=== PATIENT | male | born 1940 | race Caucasian/White ===

== ENCOUNTER 2017-11-03 14:52 | Outpatient (CLI) | payer MEDICARE ==
--- NOTE | 2017-11-03 21:39 | XRAY Report ---
DATE OF SERVICE: 11/03/2017 TWO VIEW CHEST: 11/03/2017 CLINICAL INDICATION: Cough. Frontal and lateral views of the chest demonstrate a normal cardiac silhouette. The lungs are hyperinflated, compatible with COPD. No focal consolidation, effusion, or pneumothorax is present. IMPRESSION: COPD, but no evidence of acute cardiopulmonary disease. TD: 11/03/2017 22:38
== END 2017-11-03 14:53 | disposition home or self-care (01) ==
LOC: DI 14:52
PROVIDERS: ATTEND Nurse Practitioner Family
DX: R05 Cough (principal); J44.9 Chronic obstructive pulmonary disease, unspecified
CPT/HCPCS: 71046

== ENCOUNTER 2018-09-06 16:47 | Outpatient (CLI) | payer MEDICARE ==
--- NOTE | 2018-09-07 10:18 | XRAY Report ---
Reason: NEUROGENIC CLAUDICATION Procedure Date: 09/06/2018 Accession Number: [id number] / [id number] Procedure: XR - Lumbar Spine 2 View CPT Code: FULL RESULT: EXAM: LUMBOSACRAL SPINE RADIOGRAPHY EXAM DATE: 09/06/2018 05:01 PM. CLINICAL HISTORY: Neurogenic claudication. COMPARISONS: None. TECHNIQUE: 3 views. FINDINGS: Alignment: No scoliosis. Minimal anterolisthesis at L4-L5. Bones: Five ylo-ebq-vbjipyi lumbar vertebral bodies are present. No definite fractures or acute bone lesions. Circular sclerotic focus within the inferior L3 vertebral body likely represents a Schmorl's node. Disks: Mild to moderate disk space narrowing at L4-L5, L5-S1 and less so at L3-L4. Mild multilevel vertebral body spurring. Facets: Degenerative facet disease predominates at L5-S1. Sacroiliac Joints: Unremarkable. Soft Tissues: Substantial aortic/arterial calcifications.. The visualized bowel gas pattern is normal. IMPRESSION: 1. No definite acute abnormality. 2. Degenerative disk and facet disease, as above. RADIA
== END 2018-09-06 16:48 | disposition home or self-care (01) ==
LOC: DI 16:47
PROVIDERS: ATTEND Registered Nurse
DX: M51.36 Other intervertebral disc degeneration, lumbar region (principal); I73.9 Peripheral vascular disease, unspecified; G96.8 Other specified disorders of central nervous system
CPT/HCPCS: 72100

== ENCOUNTER 2018-10-08 08:46 | Outpatient (CLI) | payer MEDICARE ==
--- NOTE | 2018-10-08 16:07 | MRI Report ---
Reason: OTHER SPECIFIED DISORDERS OF CENTRAL NERVOUS SYST Procedure Date: 10/08/2018 Accession Number: [id number] / [id number] Procedure: MRI - Lumbar Spine W/O CPT Code: FULL RESULT: EXAM: MRI LUMBAR SPINE WITHOUT CONTRAST EXAM DATE: 10/08/2018 08:55 AM. CLINICAL HISTORY: Other specified disorders of central nervous system. Back pain. COMPARISON: Lumbar spine 2 views 09/06/2018 4:52 PM. TECHNIQUE: Multiplanar, multisequence T1-weighted and fluid-sensitive sequences of the lumbar spine from T12 to S1 without contrast. Other: None. FINDINGS: Spinal Canal: The conus terminates at T12-L1. The conus medullaris and cauda equina are unremarkable. Alignment: No scoliosis or spondylolisthesis. Bone Marrow: Five ozp-dhr-uzjzdxl lumbar vertebral bodies are assumed. No gross fractures or bone lesions. No bone marrow replacement. Disk Levels/Facets: T12-L1: Unremarkable. L1-L2: Unremarkable. L2-L3: Broad-based disk bulge, prominent facets. Mild to moderate central stenosis. Mild bilateral foraminal stenosis. L3-L4: Combination of short pedicles, hypertrophic facets and disk bulge creates severe central stenosis. No CSF surrounds the nerve roots at this level. Series 601 image 18. Moderate bilateral foraminal stenosis also seen. L4-L5: Disk dehydration, marked facet and ligament flavum hypertrophic change and short pedicles create severe central stenosis. Series 601 image 11. Mild bilateral foraminal stenosis. L5-S1: Prominent facets. Prominent ligament flavum. Mild broad-based bulge. Mild central stenosis. No foraminal stenosis. Musculature: Moderate fatty atrophy of the multifidus muscle also noted. Other: Upper kidneys show multiple areas of high signal on T2, presumed to be cyst. IMPRESSION: 1. Spinal cord terminates at T12-L1 which is normal. 2. L2-L3 shows a broad-based bulge and prominent facets. Mild to moderate central stenosis. Mild bilateral foraminal stenosis also noted. 3. L3-L4 shows short pedicles, hypertrophic facets and disk bulge creating severe central stenosis. Moderate bilateral foraminal stenosis. 4. L4-L5 shows marked facet and ligament flavum hypertrophic change with short pedicles creating severe central stenosis. Mild bilateral foraminal stenosis also seen. 5. L5-S1 shows prominent facets, mild bulge, mild central stenosis and no foraminal narrowing. Comment: The following findings are so common in adults without low back pain that while we report their presence, they must be interpreted with caution and in the context of the clinical situation. (Reference Yeni et al, Spine 2001) Prevalence of findings in patients without low back pain: Disk degeneration (any evidence): 92% Disk desiccation/T2 signal loss: 83% Disk height loss: 56% Disk bulge: 64% Disk protrusion: 32% Annular tear/high intensity zone: 38% RADIA
== END 2018-10-08 08:47 | disposition home or self-care (01) ==
LOC: DI 08:46
PROVIDERS: ATTEND Registered Nurse
DX: M47.9 Spondylosis, unspecified (principal); M51.36 Other intervertebral disc degeneration, lumbar region; M48.061 Spinal stenosis, lumbar region without neurogenic claudication
CPT/HCPCS: 72148

== ENCOUNTER 2019-02-27 12:54 | Outpatient (CLI) | payer MEDICARE ==
--- NOTE | 2019-02-28 00:50 | Ultrasound Report ---
Reason: ATHEROSCLEROSIS OR CORONARY ARTER WO ANGINA PECTOR Procedure Date: 02/27/2019 Accession Number: [id number] / [id number] Procedure: US - Carotid Doppler Complete CPT Code: FULL RESULT: EXAM: BILATERAL CAROTID AND VERTEBRAL ARTERY DUPLEX DOPPLER ULTRASOUND: EXAM DATE: 02/27/2019 01:41 PM CLINICAL HISTORY: Atherosclerosis or coronary artery without angina pectoris. COMPARISON: None. TECHNIQUE: Grayscale imaging, color Doppler, and duplex spectral Doppler were used to evaluate the carotid and vertebral arteries bilaterally. Static images were obtained. FINDINGS: Large amount of atheromatous plaques are noted in the left carotid bulb and extending into the left internal carotid artery. The left internal carotid artery is occluded. Large amount of atheromatous calcified and noncalcified plaques are present in the right carotid bulb and extending into the internal carotid artery. Markedly elevated velocities are noted in the proximal and mid right internal carotid artery with evidence of spectral broadening. The waveforms in the distal right internal carotid artery are dampened. While increased velocities are expected given the contralateral occlusion, the color and grayscale and spectral waveform analysis suggests a stenosis of greater than 70% to 99%. Normal antegrade flow is present in bilateral vertebral arteries. VELOCITIES (cm/sec): Right CCA mid: PSV 53 cm/sec CCA dist: PSV 62 cm/sec ICA prox: PSV 370 cm/sec, EDV 147 cm/sec ICA mid: PSV 390 cm/sec, EDV 143 cm/sec ICA dist: PSV 128 cm/sec, EDV 59 cm/sec ECA: PSV 89 cm/sec Vert: PSV 43 cm/sec ICA/CCA: 6.3 Left CCA mid: PSV 35 cm/sec CCA dist: PSV 200 cm/sec ICA prox: Occluded ICA mid: Occluded ICA dist: Occluded ECA: PSV 65 cm/sec Vert: PSV 42 cm/sec ICA/CCA: N/A ICA diameter stenosis: Right: 70-99% by velocity and greater than 70% by NASCET criteria. Left: Occluded by velocity and occluded by NASCET criteria. IMPRESSION: 1. Marked bilateral carotid artery plaquing. 2. Markedly elevated velocities with spectral broadening with associated color and grayscale imaging concerning for a stenosis of 70-99% at the right internal carotid artery. 3. Occluded left internal carotid artery. 4. Normal antegrade flow is present in bilateral vertebral arteries. General Recommendations: Stenosis =50% ICA - Follow-up ultrasound 6-12 months Stenosis <50% ICA - High Risk Patient with plaque - Follow-up ultrasound 1-2 years Normal Study but High Risk Patient - Follow-up ultrasound 3-5 years Management recommendations and diagnostic criteria are based on current IAC endorsed standards in Carotid Artery Stenosis: Grayscale and Doppler Ultrasound Diagnosis. Validated velocity measurements with angiographic measurements and velocity criteria are extrapolated from diameter data as defined by the Society of Radiologists in Ultrasound Consensus Conference Radiology 2003; 229;340-346. RADIA
== END 2019-02-27 12:55 | disposition home or self-care (01) ==
LOC: DI 12:54
PROVIDERS: ATTEND Registered Nurse
DX: I65.22 Occlusion and stenosis of left carotid artery (principal); I65.21 Occlusion and stenosis of right carotid artery; I25.10 Atherosclerotic heart disease of native coronary artery without angina pectoris
CPT/HCPCS: 93880

== ENCOUNTER 2019-08-03 11:13 | Outpatient (CLI) | payer MEDICARE ==
--- NOTE | 2019-08-04 09:09 | Ultrasound Report ---
Reason: DIABETES, PAD Procedure Date: 08/03/2019 Accession Number: [id number] / [id number] Procedure: US - Duplex Lwr Ext Arterial Bilat CPT Code: FULL RESULT: EXAM: BILATERAL LOWER EXTREMITY ARTERIAL DOPPLER ULTRASOUND EXAM DATE: 08/03/2019 12:32 PM. CLINICAL HISTORY: Diabetes, peripheral arterial disease. COMPARISON: None. TECHNIQUE: Real-time sonographic vascular imaging was performed by the meter and service line inspector, utilizing color-flow, Doppler flow, and spectral analysis. Multiple sales service representative static images were saved for review. FINDINGS: RIGHT LOWER EXTREMITY: DECK AND HULL ASSEMBLER: PSV 90 cm/sec, biphasic waveform. PSFA: Occluded. MSFA: Occluded. DSFA: PSV 10 cm/sec, biphasic waveform. PFA: PSV 58 cm/sec, biphasic waveform. POP: PSV 16 cm/sec, monophasic waveform. STACY: PSV 26 cm/sec, monophasic waveform. DECK MOLDER: PSV 57 cm/sec, monophasic waveform. DACIA: PSV 29 cm/sec, monophasic waveform. DPA: PSV 10 cm/sec, monophasic waveform. LEFT LOWER EXTREMITY: DECK AND HULL ASSEMBLER: PSV 212 cm/sec, biphasic waveform. PSFA: Occluded. MSFA: Occluded. DSFA: PSV 54 cm/sec, Monophasic waveform.. PFA: PSV 85 cm/sec, biphasic waveform. POP: PSV 19 cm/sec, monophasic waveform. STACY: PSV 22 cm/sec, monophasic waveform. DECK MOLDER: PSV 16 cm/sec, monophasic waveform. DACIA: PSV 35 cm/sec, monophasic waveform. DPA: PSV 9 cm/sec, monophasic waveform. There is occlusion of the right proximal to mid SFA with monophasic distal reconstitution. There is occlusion of the left proximal to mid SFA with monophasic distal reconstitution. IMPRESSION: 1. 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 RADIA The call report notification system was initiated by Dr. Cesar Mueller at 08:42 AM on 08/04/2019. The above call report findings were discussed with Shantel Packer by Dr. Cesar Mueller at 09:10 AM on 08/04/2019.
== END 2019-08-03 11:14 | disposition home or self-care (01) ==
LOC: DI 11:13
PROVIDERS: ATTEND Podiatrist
DX: E11.51 Type 2 diabetes mellitus with diabetic peripheral angiopathy without gangrene (principal); I70.203 Unspecified atherosclerosis of native arteries of extremities, bilateral legs
CPT/HCPCS: 93925